=== PATIENT | female | born 1930 | race Caucasian/White ===

== ENCOUNTER 2019-08-20 10:11 | Outpatient (CLI) | payer MEDICARE, OTHER | END 2019-08-20 10:12 | disposition critical access hospital (66) | LOC: EMS 10:11 | PROVIDERS: ATTEND Surgery | DX: M25.552 Pain in left hip (principal); Z96.643 Presence of artificial hip joint, bilateral | CPT/HCPCS: A0425; A0429 ==

== ENCOUNTER 2019-08-20 10:42 | Emergency (ER) | payer MEDICARE, OTHER ==
[2019-08-20] MEDS ORDERED: ONDANSETRON 4 MG/2 ML VIAL IVP STA (10:52)
[2019-08-20] MEDS ORDERED: MORPHINE 2 MG/ML CARPUJECT IVP STA (10:52)
--- NOTE | 2019-08-20 11:36 | XRAY Report ---
Reason: ? dislocated prosthesis Procedure Date: 08/20/2019 Accession Number: [id number] / [id number] Procedure: XR - Hip w/Pelvis 2-3V LT CPT Code: Final Report FULL RESULT: EXAM: LEFT HIP RADIOGRAPHY EXAM DATE: 08/20/2019 10:43 AM. CLINICAL HISTORY: ? dislocated prosthesis. Left hip pain. Bending over this morning and heard pop. COMPARISON: None. TECHNIQUE: 2 views. FINDINGS: Evaluation somewhat limited by patient rotation. Bones: Bilateral hip prostheses present. No definite fracture identified. No periprosthetic lucency. Asymmetry of the lesser trochanters may be related to rotation of femur. Degenerative changes and scoliosis of the partially visualized spine. Joints: The left hip femoral head component appears to be posteriorly dislocated with ball projecting between the left and right acetabular cups on lateral view. Soft Tissues: Unremarkable. IMPRESSION: 1. Posterior dislocation at prosthetic left hip. 2. Prosthetic right hip appears intact. RADIA
--- NOTE | 2019-08-20 11:44 | ED Physician Documentation ---
PD HPI LOWER EXT INJURY - Stated complaint Stated Complaint: DISPLACED HIP - Chief complaint Chief Complaint: General - History obtained from History obtained from: Patient, EMS - History of Present Illness PD HPI LOW EXT INJURY LOCATION: Left, Hip Type of injury: Twist Where injury occurred: Home Timing - onset: Today Timing - duration: Minutes Timing - details: Abrupt onset, Still present Improved by: Rest, Immobilization Worsened by: Moving, Palpating Associated symptoms: No: Weakness, Numbness, Tingling, Swelling Similar symptoms before: Has not had sx before Recently seen: Not recently seen - Additional information Additional information: 88 y/o female with bilateral hip prosthesis was attempting to clean a spot on the floor behind the toilet and her left hip dislocated. She was not able to move, stand or move her leg without severe pain and she is brought to the hospital but ambulance. She has not been ill recently and does not usually have to go to the doctor or take medications. Review of Systems Constitutional: denies: Fever Eyes: denies: Decreased vision Ears: denies: Ear pain Nose: denies: Rhinorrhea / runny nose, Congestion Throat: denies: Sore throat Cardiac: denies: Chest pain / pressure, Palpitations Respiratory: denies: Dyspnea, Cough GI: denies: Abdominal Pain, Nausea, Vomiting, Constipation, Diarrhea : denies: Dysuria, Frequency Skin: denies: Rash Musculoskeletal: reports: Extremity pain, Joint pain. denies: Neck pain, Back pain Neurologic: denies: Generalized weakness, Focal weakness, Numbness, Difficulty speaking PD PAST MEDICAL HISTORY - Past Medical History Past Medical History: No - Past Surgical History Past Surgical History: Yes Ortho: Hip replacement - Present Medications Home Medications: Ambulatory Orders Medication Instructions Recorded Confirmed No Known Home Medications 08/20/19 08/20/19 - Allergies Allergies/Adverse Reactions: Allergies Allergy/AdvReac Type Severity Reaction Status Date / Time No Known Drug Allergies Allergy Verified 08/20/19 10:52 - Social History Does the pt smoke?: No Smoking Status: Never smoker Does the pt drink ETOH?: No Does the pt have substance abuse?: No - Immunizations Immunizations: TDAP >10years/unknown PD ED PE NORMAL - Vitals Vital signs reviewed: Yes (tachy and hypertensive ) - General General: Alert and oriented X 3, No acute distress, Well developed/nourished - HEENT HEENT: Atraumatic, PERRL, EOMI - Neck Neck: Supple, no meningeal sign - Cardiac Cardiac: RRR, Other (2/6 holosystolic murmer ) - Respiratory Respiratory: No respiratory distress, Clear bilaterally - Abdomen Abdomen: Soft, Non tender - Back Back: No CVA TTP, No spinal TTP - Derm Derm: Normal color, Warm and dry, No rash - Extremities Extremities: Other (There is tenderness to the trochanter on the left and a def ect concerning for posterior dislocation. She is not able to tolerate flexion/extension or rotation. distal n/v is intact. ) - Neuro Neuro: Alert and oriented X 3, hand alterations tailor 2-12 intact, No motor deficit, No sensory deficit, Normal speech Eye Opening: Spontaneous Motor: Obeys Commands Verbal: Oriented GCS Score: 15 - Psych Psych: Normal mood, Normal affect Results - Vitals Vitals: Vital Signs - 24 hr 08/20/19 08/20/19 08/20/19 10:48 12:30 12:35 Temperature 36.3 C L Heart Rate 101 H 89 90 Respiratory 20 17 17 Rate Blood Pressure 155/92 H 168/82 H 138/74 H O2 Saturation 99 100 100 08/20/19 08/20/19 08/20/19 12:40 12:48 12:51 Temperature Heart Rate 79 78 80 Respiratory 13 15 12 Rate Blood Pressure 118/60 124/63 O2 Saturation 96 100 08/20/19 13:00 Temperature Heart Rate 77 Respiratory 20 Rate Blood Pressure 120/64 O2 Saturation 100 Oxygen O2 Source Room air - Rads (name of study) hip Radiology: Prelim report reviewed (Impression: 1. Posterior dislocation at prosthetic left hip. 2. Prosthetic right hip appears intact.), EMP read indepedently, See rad report Procedures - Reduction Body part reduced: Left, Hip, prosthetic Fracture or dislocation: Dislocation Anesthesia: Conscious sedation, Morphine, Propofol Hip reduction technique: Fulcrum Reduction aftercare: NV intact, Xray confirms reduction, Patient tolerated well, Other (walker) - Procedural sedation Sedation prep: Informed consent, Time out completed, Last meal (last night), PE performed, AHA 2 - mild disease Sedation medications: morphine, propofol, given by MD Patient status during sedation: Responds to tactile, Maintained airway, Recovered uneventfully, Respiratory depression Sedation recovery: Back to baseline - IVC sono (time) 1219 Bedside IVC sono: IVC measures (cm) (1.05), Dehydration (est 1 liter deficit.) PD MEDICAL DECISION MAKING - ED course Complexity details: reviewed results, re-evaluated patient, considered differential, d/w patient ED course: 88-year-old female with bilateral prosthetic hips has dislocated her left prosthesis trying to clean underneath her toilet. She has successful reduction and feels markedly improved. Departure - Departure Disposition: 01 Home, Self Care Clinical Impression: Dislocation of hip joint prosthesis Qualifiers: Encounter type: initial encounter Qualified Code(s): T84.029A - Dislocation of unspecified internal joint prosthesis, initial encounter Condition: Stable Instructions: ED Hip Replace Dislocation Reduc Follow-Up: Liliam Parada PA [Primary Care Provider] -
[2019-08-20] MEDS ORDERED: PROPOFOL 200 MG/20 ML VIAL IVP STA (12:29)
--- NOTE | 2019-08-20 13:45 | XRAY Report ---
Reason: post reduction Procedure Date: 08/20/2019 Accession Number: [id number] / [id number] Procedure: XR - Hip w/Pelvis 2-3V LT CPT Code: Final Report FULL RESULT: EXAM: LEFT HIP RADIOGRAPHY EXAM DATE: 08/20/2019 01:18 PM. CLINICAL HISTORY: Post reduction. COMPARISON: HIP W/PELVIS 2-3V LT 08/20/2019 10:43 AM. TECHNIQUE: 2 views. FINDINGS: Bones: Bones appear osteopenic. Bilateral hip prostheses again seen. No periprosthetic lucencies. No definite fracture identified. Degenerative changes of spine. Joints: No dislocation. Interval reduction of dislocated left hip prosthesis. Soft Tissues: Unremarkable. IMPRESSION: Interval reduction of dislocated left hip prosthesis with expected alignment. RADIA
[2019-08-20 14:56] VITALS: BP 123/58
== END 2019-08-20 15:01 | disposition home or self-care (01) ==
LOC: EDUNIT# → ED 10:42
DX: T84.021A Dislocation of internal left hip prosthesis, initial encounter (principal); M25.552 Pain in left hip
CPT/HCPCS: 27265; 94770; 99152

== ENCOUNTER 2021-10-21 20:32 | Emergency (ER) | payer MEDICARE, OTHER ==
[2021-10-21] MEDS: SODIUM CHLORIDE 0.9% 1,000 ML IV STA (20:57)
--- NOTE | 2021-10-21 21:08 | ED Physician Documentation ---
History of Present Illness - Stated complaint Stated Complaint: L HIP DISLOCATION - Chief complaint Chief Complaint: Ext Problem - History obtained from History obtained from: Patient, EMS - History of Present Illness Timing: Today Pain level max: 5 Pain level now: 5 - Additonal information Additional information: Patient is an 89-year-old female who has a history of bilateral hip prosthesis. She states that she was bending over today when she felt her left hip dislocate. This been a chronic ongoing issue for her. Worse with movement, better with rest. No other injuries. No numbness or tingling. Review of Systems Ten Systems: 10 systems reviewed and negative Constitutional: denies: Fever, Chills Ears: denies: Ear pain Nose: denies: Rhinorrhea / runny nose, Congestion Respiratory: denies: Dyspnea, Cough GI: denies: Abdominal Pain, Nausea, Vomiting, Diarrhea Skin: denies: Rash Musculoskeletal: denies: Neck pain, Back pain Neurologic: denies: Headache PD PAST MEDICAL HISTORY - Past Medical History Past Medical History: Yes - Past Surgical History Past Surgical History: Yes Ortho: Hip replacement - Present Medications Home Medications: Ambulatory Orders Medication Instructions Recorded Confirmed No Known Home Medications 08/20/19 08/20/19 - Allergies Allergies/Adverse Reactions: Allergies Allergy/AdvReac Type Severity Reaction Status Date / Time No Known Drug Allergies Allergy Verified 10/21/21 20:33 - Social History Does the pt smoke?: No Smoking Status: Never smoker Does the pt drink ETOH?: No Does the pt have substance abuse?: No - Immunizations Immunizations: TDAP >10years/unknown PD ED PE NORMAL - Vitals Vital signs reviewed: Yes - General General: Alert and oriented X 3, No acute distress, Well developed/nourished - HEENT HEENT: PERRL, Moist mucous membranes - Neck Neck: Supple, no meningeal sign - Cardiac Cardiac: RRR, Strong equal pulses - Respiratory Respiratory: No respiratory distress, Clear bilaterally - Abdomen Abdomen: Soft, Non tender, Non distended - Derm Derm: Warm and dry - Extremities Extremities: Other (Internally rotated and shortened left hip. Limited range of motion secondary to pain. Neurovascular intact) - Neuro Neuro: Alert and oriented X 3 - Psych Psych: Normal mood, Normal affect Results - Vitals Vitals: Vital Signs - 24 hr 10/21/21 10/21/21 10/21/21 20:33 21:14 21:18 Temperature 37.5 C Heart Rate 95 108 H 101 H Respiratory 20 21 19 Rate Blood Pressure 134/93 H 129/68 109/64 O2 Saturation 97 97 94 10/21/21 21:21 Temperature Heart Rate 100 Respiratory 21 Rate Blood Pressure 124/60 O2 Saturation 96 Oxygen O2 Source Room air - Rads (name of study) L hip xray Radiology: Final report received, EMP read contemporaneously, See rad report (Posterior hip dislocation) L hip xray s/p reduction Radiology: Final report received, EMP read contemporaneously, See rad report (successful reduction) Procedures - Reduction Body part reduced: Left, Hip, prosthetic Fracture or dislocation: Dislocation Anesthesia: Other (propofol) Hip reduction technique: Fulcrum Reduction aftercare: NV intact, Xray confirms reduction, Alignment improved, Patient tolerated well - Procedural sedation Sedation prep: Informed consent, Time out completed, Last meal (4 hrs [employer]) Sedation Medications: propofol Mallampati classification: II Patient status during sedation: Responds to tactile, Vitals remained stable, Maintained airway, Recovered uneventfully Sedation recovery: Recovered uneventfully Time in sedation (Minutes): 15 PD MEDICAL DECISION MAKING - ED course Complexity details: reviewed results, re-evaluated patient, considered differential, d/w patient ED course: 89-year-old female presents to the emergency department with a left hip prosthesis dislocation. This is a recurrent issue for the patient. Propofol sedation was used, 50 mg IV. The hip was reduced. Tolerated well. No complications. X-ray confirms reduction. Patient counseled regarding signs and symptoms for which I believe and urgent re-evaluation would be necessary. Patient with good understanding of and agreement to plan and is comfortable going home at this time This document was made in part using voice recognition software. While efforts are made to proofread this document, sound alike and grammatical errors may occur. Departure - Departure Disposition: 01 Home, Self Care Clinical Impression: Dislocation of hip joint prosthesis Qualifiers: Encounter type: initial encounter Qualified Code(s): T84.029A - Dislocation of unspecified internal joint prosthesis, initial encounter Condition: Good Instructions: ED Hip Replace Dislocation Reduc Follow-Up: your,doctor in 1 week [Other] Comments: Your hip was reduced tonight. Please follow-up with your doctor for further care. Avoid bending at the hip. Use a walker to help bear weight over the next few days. Return if you worsen
[2021-10-21] MEDS: PROPOFOL 200 MG/20 ML VIAL IVP STA (21:17)
--- NOTE | 2021-10-21 21:35 | XRAY Report ---
PROCEDURE: Hip w/Pelvis 2-3V LT INDICATIONS: L hip pain, TECHNIQUE: AP pelvis with lateral view of the left hip. COMPARISON: 08/20/2019. FINDINGS: Bones: There are bilateral hip prostheses redemonstrated. There is posterior dislocation of the left hip prosthesis. No definite fracture identified. Soft tissues: The visualized bowel gas pattern is normal. No suspicious soft tissue calcifications. IMPRESSION: 1. Posterior dislocation of left hip prosthesis. Reviewed by: Livan Pitts MD on 10/21/2021 9:34 PM PDT Approved by: Livan Pitts MD on 10/21/2021 9:34 PM PDT Station ID: [id number]
[2021-10-21 21:53] VITALS: BP 144/77
--- NOTE | 2021-10-21 23:47 | XRAY Report ---
PROCEDURE: Hip w/Pelvis 2-3V LT INDICATIONS: post reduction TECHNIQUE: AP pelvis with lateral view of the right hip. COMPARISON: None. FINDINGS: Bones: There is interval reduction of the previously visualized dislocation of the left hip prosthes is. The prosthesis demonstrates preserved alignment with the acetabular component spinal canal. No fr actures or dislocations. Pelvic ring appears intact. No suspicious bony lesions. Soft tissues: The visualized bowel gas pattern is normal. No suspicious soft tissue calcifications. IMPRESSION: 1. No fracture or dislocation. 2. Left hip prosthesis redemonstrated without definite evidence of hardware failure. Reviewed by: Livan Pitts MD on 10/21/2021 11:50 PM PDT Approved by: Livan Pitts MD on 10/21/2021 11:50 PM PDT Station ID: [id number]
== END 2021-10-21 22:33 | disposition home or self-care (01) ==
LOC: ED 20:32
DX: T84.029A Dislocation of unspecified internal joint prosthesis, initial encounter (principal)
CPT/HCPCS: 27265; 99152; 99282